=== PATIENT | male | born 1960 | race Two or more races ===

== ENCOUNTER 2023-01-21 13:47 | Emergency (ER) | payer MEDICAID, OTHER ==
[~2023-01-21] VITALS: Ht 165.1 cm; Wt 72.5 kg
[2023-01-21 14:07] VITALS: BP 136/82; PULSE 70; RESP 18; TEMP 98.1; O2SAT 98
[2023-01-21] MEDS ORDERED: HYDROcodone-ACET 5/325MG TAB PO ONE (15:45)
[2023-01-21] MEDS ORDERED: TRAM50TA2 PO (15:52)
== END 2023-01-21 18:03 | disposition home or self-care (01) ==
LOC: ER 13:47
DX: S13.9XXA Sprain of joints and ligaments of unspecified parts of neck, initial encounter (principal); S33.5XXA Sprain of ligaments of lumbar spine, initial encounter; S43.401A Unspecified sprain of right shoulder joint, initial encounter; S23.3XXA Sprain of ligaments of thoracic spine, initial encounter; E78.5 Hyperlipidemia, unspecified; E11.9 Type 2 diabetes mellitus without complications; X58.XXXA Exposure to other specified factors, initial encounter; Y93.89 Activity, other specified; Y92.89 Other specified places as the place of occurrence of the external cause; Y99.8 Other external cause status
CPT/HCPCS: 72040; 72070; 72100; 73030

== ENCOUNTER → 2023-07-01 | Outpatient (CLI) | payer MEDICAID ==
[~2023-07-01] MED LIST: TRAM50TA2 PO
[2023-07-01 13:47] LABS: Free T4 (Free Thyroxine) 0.96 ng/dL (0.89-1.76)
[2023-07-01 15:14] LABS: Folate (Folic Acid) 21.07 ng/mL (>5.38)
== END | disposition home or self-care (01) ==
LOC: LAB 12:06
PROVIDERS: ATTEND Psychiatry & Neurology Neurology
DX: R41.3 Other amnesia (principal)
CPT/HCPCS: 36415; 82607; 82746; 84439; 84443